=== PATIENT | female | born 1945 | race Caucasian/White ===

== ENCOUNTER 2023-04-01 13:48 | Emergency (ER) | payer MEDICARE, SELFPAY ==
--- NOTE | ~2023-04-01 | XR_ITS ---
EXAM: XR hand RT min 3V DATE: 04/01/2023 14:48 HISTORY: pain over 5th metacarpal, hit on door frame 6 days ago . COMPARISON: None available. FINDINGS: Decreased mineralization. Mildly comminuted fracture of the distal aspect of the right fif th metacarpal, with anterior angulation. No lytic or blastic lesion. Moderate polyarticular osteoarth ritis. No erosion or periosteal change. Soft tissues within normal limits. IMPRESSION: Mildly comminuted, angulated fracture of the distal right fifth metacarpal (boxer's type fracture). Reviewed, dictated and finalized at location K. IMPRESSION: Mildly comminuted, angulated fracture of the distal right fifth met acarpal (boxer's type fracture).
[2023-04-01 13:58] VITALS: BP 149/80; PULSE 86; RESP 18; TEMP 36.4; O2SAT 96
--- NOTE | 2023-04-01 14:22 | ED.UPPEXIN ---
HPI - Extremity Injury (Upper) General Chief Complaint: Extremity Injury, Upper <Fadumo Singh PA-C - Last Filed: 04/01/23 19:56> Stated Complaint: Right hand <BYRON Lewis Last Filed: 04/01/23 19:56> Time Seen by Provider: 04/01/23 14:05 <Fadumo Singh PA-C - Last Filed: 04/01/23 19:56> History of Present Illness HPI narrative: 37-year-old female reports for evaluation of right fifth metacarpal pain x6 days. Patient states 6 days ago, she tripped on a stair and hit her right hand on the door frame. States since then, she has had pain and swelling to the fifth metacarpal. She went to her PCP Dr. Ramachandran who ordered x-rays of the hand. Patient states she called the doctor's office today for results who advised her that it may be dislocated into go to the ER for further evaluation. She denies paresthesias, difficulty with range of motion of her wrist or fingers. She has not taken anything for pain. She denies other injuries acquired during the fall. Denies chest pain, shortness of breath, focal numbness or weakness, vision changes. She did not hit her head or lose consciousness <BYRON Lewis Last Filed: 04/01/23 19:56> Related Data Home Medications: Home Medications Medication Instructions Recorded Confirmed cholecalciferol (vitamin D3) 50 50 mcg PO DAILY 09/16/21 04/20/22 mcg (2,000 unit) tablet <BYRON Lewis Last Filed: 04/01/23 19:56> Allergies/Adverse Reactions: Allergies Allergy/AdvReac Type Severity Reaction Status Date / Time No Known Allergies Allergy Verified 04/20/22 08:21 <BYRON Lewis Last Filed: 04/01/23 19:56> Review of Systems Review of Systems: CONSTITUTIONAL: Denies fever, chills EYES: Denies visual changes, redness, or discharge. ENT: Denies rhinorrhea, congestion, sore throat, or otalgia. CARDIOVASCULAR: Denies chest pain, palpitations, or edema. RESPIRATORY: Denies cough or dyspnea. GASTROINTESTINAL: Denies abdominal pain, nausea, vomiting, or diarrhea. GENITOURINARY: Denies dysuria or hematuria. SKIN: Denies rash or itching. MUSCULOSKELETAL: See HPI NEUROLOGIC: Denies headache, numbness, dizziness, or weakness. PSYCHIATRIC: Denies anxiety or depression. <Fadumo Singh PA-C - Last Filed: 04/01/23 19:56> [facility] Past Medical History Medical History: Medical History BMI 35.0-35.9,adult BMI 36.0-36.9,adult Encounter for Medicare annual wellness exam Encounter for routine adult health examination with abnormal findings Encounter for routine adult health examination without abnormal findings Herpes zoster with complication Mixed hyperlipidemia Multiple acquired skin tags On press tender long goods drug therapy Onychomycosis Prediabetes Seasonal allergies Spider veins of both lower extremities Trochanteric bursitis of both hips Venous stasis ulcer Vision changes <Fadumo Singh PA-C - Last Filed: 04/01/23 19:56> Family History Family History: Family History Sibling Family history of Parkinson's disease Mother Family history of heart disease in male family member before age 55, Onset Age: 87 Patient's mother is , Onset Age: 87 <Fadumo Singh PA-C - Last Filed: 04/01/23 19:56> Social History Social History: Social History Smoking status: Never smoker Second hand tobacco smoke exposure: No Alcohol intake: never <Fadumo Singh PA-C - Last Filed: 04/01/23 19:56> Exam Narrative: GENERAL: Well-appearing, in no acute distress. HEAD: Normocephalic NECK: Supple. CHEST: No respiratory distress. Clear to auscultation, no adventitious breath sounds. HEART: Regular rate and rhythm. No murmur heard. Normal peripheral pulses. EXTREMITIES: R hand with edema, ecchymosis
== END 2023-04-01 16:03 | disposition home or self-care (01) ==
PROVIDERS: Emergency Provider Physician Assistant; PCP Internal Medicine
DX: S62.396A Other fracture of fifth metacarpal bone, right hand, initial encounter for closed fracture (principal); E78.2 Mixed hyperlipidemia; R73.03 Prediabetes; W10.9XXA Fall (on) (from) unspecified stairs and steps, initial encounter
CPT/HCPCS: 29125; 73130; 99284

== ENCOUNTER 2025-09-13 10:41 | Outpatient (CLI) | payer MEDICARE, SELFPAY ==
--- NOTE | ~2025-09-13 | US_ITS ---
EXAMINATION:US venous doppler LE LT INDICATION:Left leg pain TECHNIQUE: Multiple grayscale, color flow and Doppler images of the left lower extremity deep venous systems were obtained and reviewed. COMPARISON:No prior studies for comparison. FINDINGS: The common femoral, superficial femoral and popliteal veins demonstrate normal respiratory variation, augmentation and compressibility. Color flow is also seen within the posterior tibial, peroneal, greater saphenous and profunda veins. IMPRESSION: 1: No lower extremity deep venous thrombosis. Reviewed, dictated and finalized at location I. NEERING PROGRAM ANALYST
--- NOTE | ~2025-09-13 | US_ITS ---
US soft tissue LE LT 09/13/2025 11:53 Indication: Palpable abnormality left calf. Painful. Procedure: Limited soft tissue ultrasound of the left calf Comparison: No prior studies for comparison. Findings: There is a tubular structure in the area of palpable concern which is hypoechoic without significant blood flow, located superficially. No solid masses are identified. No abnormal shadowing. Impression: 1: Elongated tubular structure with hypoechoic echotexture and no significant internal vascularity in the area palpable concern, most likely a thrombosed varicose vein. Reviewed, dictated and finalized at location I. SEARCH MARKETING STRATEGIST Impression: 1: Elongated tubular structure with hypoechoic echotexture and no significant i nternal vascularity in the area palpable concern, most likely a thrombosed vari cose vein.
[2025-09-13 11:15] LABS: Hematocrit 39.6 % (37.0-47.0); Hemoglobin 13.4 g/dL (12.0-15.0); Immature Granulocyte Percent A 0.2 % (0-0.5); Lymphocytes Absolute Auto 2.24 K/mm3 (0.9-3.2); Mean Corpuscular HGB Conc 33.8 g/dl (32-36); Mean Corpuscular Hemoglobin 37.2 pg (26-34); Mean Corpuscular Volume 110.0 fl (80-100); Nucleated Red Blood Cells Absolute Auto 0.000 K/mm3 (0.0-0.012); Nucleated Red Blood Cells Perc 0.0 % (0.0-0.2); Platelet Count Result 456 k/mm3 (150-375); Red Blood Count 3.60 M/mm3 (4.2-5.4); White Blood Count 8.1 K/mm3 (4.5-10.0)
[2025-09-13 11:24] LABS: Anisocytosis 1+
[2025-09-13 11:25] LABS: Acanthocytes Occasional; Macrocytosis Occasional (NORMAL); Schistocytes Occasional; Stomatocytes Occasional
[2025-09-13 11:26] LABS: INR 1.0; Prothrombin Time 13.3 Seconds (11.1-14.7)
[2025-09-13 11:27] LABS: Partial Thromboplastin Time 33.6 Seconds (22.3-36.8)
[2025-09-13 11:32] LABS: Anion Gap 3 mmol/L (4-12); Blood Urea Nitrogen 26 mg/dL (7-17); Calcium 8.9 mg/dL (8.4-10.2); Carbon Dioxide 29 mmol/L (22-30); Chloride 105 mmol/L (98-107); Estimated Glomerular Filt Rate > 60; Glucose 97 mg/dL (65-110); Potassium 4.2 mmol/L (3.4-5.0); Sodium 137 mmol/L (137-145)
== END 2025-09-13 10:42 | disposition home or self-care (01) ==
PROVIDERS: PCP Internal Medicine; Visit Provider Internal Medicine
DX: M79.605 Pain in left leg (principal); M79.89 Other specified soft tissue disorders; I10 Essential (primary) hypertension; R22.42 Localized swelling, mass and lump, left lower limb
CPT/HCPCS: 36415; 76882; 80048; 85025; 85610; 85730; 93971